=== PATIENT | female | born 1990 | race Caucasian/White ===

== ENCOUNTER → 2017-09-10 | Outpatient (CLI) | payer OTHER | LOC: FIMAGING 17:19 | PROVIDERS: ATTEND Advanced Practice Midwife | DX: O02.1 Missed abortion (principal) ==

== ENCOUNTER 2017-09-14 05:43 | Day surgery (SDC) | payer OTHER ==
--- NOTE | 2017-09-13 14:39 | GHP ---
[f rep st] HISTORY AND PHYSICAL HISTORY OF PRESENT ILLNESS: Patient is a 27-year-old 1, para 0, with an EDC of 02/17/2018, which gives her a gestational age of 17 weeks and 1 day on 09/10/2017. On 09/10/2017, patient came in for her routine check, and we were unable to get heart tones. Doppler was attempted. Ultrasound was attempted in the office at the bedside. Physician, Dr. Chidi Lyn, came and also reviewed the ultrasound. There was an inability to confirm lack of cardiac activity, although we all felt that this was the case. Patient denied leaking, denied bleeding. Had not felt movement up until this point. A formal ultrasound was requested through radiology and was completed. On this ultrasound, no heart tones were visualized. Fetus was vertex. Placenta location was posterior and fundal. No previa. Cervix was 3-4 cm. Maximum vertical pocket was 3.3. No heart tones were seen on M-mode. Abdominal circumference for 15 weeks. Femur length was 14 weeks. Average ultrasound age was 14 weeks and 4 days, and the impression was that there was a demise with no cardiac activity. Dr. Juan Pascual is who reviewed the ultrasound. 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 Patient had never previously had a Pap. History of asthma, had 2 mild attacks early on in the . Previous cystitis, history of a UTI x1. SURGICAL HISTORY: [place] teeth extraction at the age of 26. PRESENT HISTORY: A low P4. Patient was on progesterone 200 mg per vagina up until 13 weeks. GYNECOLOGICAL HISTORY: Menarche started at 15 years old. Interval is 28 days. Length is 4 days. LMP was May 06, 2017. ALLERGIES: Patient is not allergic to any medications. MEDICATIONS: Being taken are Diclegis, Prometrium, and vitamins with DHA. OTHER MEDICAL HISTORY: Patient is positive for alpha thalassemia. She is a carrier, and father of the baby was negative, per the Inn[employer] standard screening. LABS: Patient is O positive, antibody negative. RPR is nonreactive. Rubella is immune. Hepatitis is negative. HIV is negative. Pap was within normal limits. Gonorrhea and chlamydia were negative. PHYSICAL ASSESSMENT: GENERAL: Patient is awake, alert, oriented x3. LUNGS: Clear bilaterally. ABDOMEN: Bowel sounds are positive in all 4 quadrants. EXTREMITIES: DTRs are 1+ bilaterally. Homans sign is negative. VITAL SIGNS: Have been within normal limits. Blood pressure was 100/62 on 09/10 for her 17 week and 1 day visit. PLAN OF CARE: 1. Dilation and evacuation on 09/14/2017. 2. Patient is O positive, antibody negative. 3. Education to patient: Nothing by mouth from 10 p.m. tonight until after procedure. Verbalized understanding. Discussed risks, benefits, and alternatives with the patient as far as dilation and curettage, dilation and evacuation. Patient verbalized understanding. The physicians will again speak with her in the a.m. about risks, benefits, and alternatives. 4. Cytotec 400mcg by mouth at 1900 on 09/13/2017. Patient wanted ultrasound: Harley IUP with no cardiac activity confirmed Risk of bleeding, infection, transfusion injury to adjacent organs such as bladder and uterus. All questions answered consent signed Genetic studies. Significant other was also a part of this conversation on the telephone today for plan of care. /[id number]/MODL MTDD
[2017-09-14] MEDS ORDERED: LR 1,000 ML IV ONE (06:19)
[2017-09-14] MEDS ORDERED: DOXYCYCLINE HYCLATE 100 MG CAP/TAB PO ONE ×3 (06:19→10:15)
[2017-09-14] MEDS ORDERED: fentaNYL 100 MCG/2 ML INJ IVP PRN (07:20)
[2017-09-14] MEDS ORDERED: ONDANSETRON 4 MG/2 ML VIAL IVP PRN (07:20)
[2017-09-14] MEDS ORDERED: HYDROCODONE/APAP 5/325 TAB PO PRN (07:20)
[2017-09-14] MEDS ORDERED: OXYCODONE/APAP 5/325 TAB PO PRN (07:20)
[2017-09-14] MEDS ORDERED: ACETAMINOPHEN 500 MG TAB PO PRN (07:20)
[2017-09-14] MEDS ORDERED: NALOXONE HCL 0.4 MG/ML INJ IVP PRN (07:20)
[2017-09-14] MEDS ORDERED: ALBUTEROL 3 ML DEYVIAL IH PRN (07:20)
--- NOTE | 2017-09-14 07:20 | PDANEPAE ---
ANE History of Present Illness D&C ANE Past Medical History - Cardiovascular History Hx Hypertension: No Hx Arrhythmias: No Hx Chest Pain: No - Pulmonary History Hx Asthma/Reactive Airway Disease: Yes Hx Sleep Apnea: No Sleep Apnea Screening Result - Last Documented: Negative ANE Review of Systems Review of systems is: negative Review of Systems: - Exercise capacity Exercise capacity: >=4 METS ANE Patient History - Allergies Allergies/Adverse Reactions: aspirin Allergy (Verified 09/14/17 06:41) - NPO status NPO Since - Liquids (Date): 09/13/17 NPO Since - Liquids (Time): 22:00 NPO Since - Solids (Date): 09/13/17 NPO Since - Solids (Time): 20:00 - Smoking Hx Smoking Status: Never smoked ANE Labs/Vital Signs - Vital Signs Blood Pressure: 98/68 Heart Rate: 62 Respiratory Rate: 12 O2 Sat (%): 99 Height: 162.56 cm Weight: 65.771 kg ANE Physical Exam - Airway Neck exam: FROM Mallampati Score: Class 2 - Pulmonary Pulmonary: clear to auscultation - Cardiovascular Cardiovascular: regular rate and rhythym - ASA Status ASA Status: II ANE Anesthesia Plan Anesthesia Plan: GA w LMA
[2017-09-14] MEDS ORDERED: PROPOFOL 200 MG/20 ML VIAL ONE (07:24)
[2017-09-14] MEDS ORDERED: LIDOCAINE 2% 5 ML SDV ONE (07:24)
[2017-09-14] MEDS ORDERED: fentaNYL 100 MCG/2 ML INJ ONE ×2 (07:25→08:33)
[2017-09-14] MEDS ORDERED: RANITIDINE 50 MG/2 ML VIAL ONE (08:09)
[2017-09-14] MEDS ORDERED: MISOPROSTOL 200 MCG TAB ONE (08:35)
--- NOTE | 2017-09-14 09:33 | POSTANESTH ---
Post Anesthetic Evaluation Cardiovascular Status: Normal, Stable Respiratory Status: Normal, Stable Level of Consciousness/Mental Status: Can Participate in Eval, Alert and Oriented Pain Control: Adequate, Prn Tx Ordered Nausea/Vomiting Control: Adequate, Prn Tx Ordered Complications Possibly Related to Anesthesia: None Noted
[2017-09-14] MEDS ORDERED: MISOPROSTOL 200 MCG TAB PR SCH (09:45)
--- NOTE | 2017-09-14 09:58 | GOP ---
[f rep st] OPERATIVE REPORT DATE OF OPERATION: SURGEON: Margoth Houser MD TYPE DISK QUALITY CONTROL SUPERVISOR: Dr. Cande Gutierrez. ANESTHESIOLOGIST: Dr. Froylan Valdivia. PREOPERATIVE DIAGNOSIS: demise 15 weeks gestation POSTOPERATIVE DIAGNOSIS: Same PROCEDURE PERFORMED: Suction dilatation and curettage evacuation. FINDINGS: SPECIMENS: To Pathology, products of conception. ESTIMATED BLOOD LOSS: 50 cc. DESCRIPTION OF PROCEDURE: Patient was taken to the operating room, where adequate general anesthetic was placed. Patient was placed in the lithotomy position in Dashawn stirrups. Patient was prepped and draped in normal sterile fashion. A speculum was then placed in the vagina and the anterior lip of the cervix was grasped with the tenaculum. The uterus was sounded to approximately 14 cm. The cervix was then dilated to approximately 11 mm. An 11 mm suction curet was then used to evacuate products of conception under direct visualization by Dr. Gutierrez, and during the procedure material was then removed with both the suction vacuum curettage and the ring forceps. Patient tolerated procedure well. All instruments were removed from the vagina. Using a red rubber catheter, the 200 cc of urine was removed from the bladder, and approximately 50 cc of EBL was lost. The patient went to Recovery in stable condition, and all products went to Pathology. Patient received doxycycline prior to procedure and will receive a dose postoperatively. Patient also received 800 mcg cytotec per rectum Patient will go home on [place], and follow up in the office in 2 weeks. URINE OUTPUT: 200 cc. IV FLUID: 1600. /[id number]/MODL MTDD
[2017-09-14] MEDS ORDERED: MISOPROSTOL 200 MCG TAB VG SCH (10:30)
[2017-09-14 10:31] VITALS: O2SAT 98
[2017-09-14] MEDS ORDERED: HYDROCODONE/APAP 5/325 TAB PO ONE (10:45)
[2017-09-14 10:51] VITALS: RESP 16
[2017-09-14 11:25] VITALS: BP 93/67
[2017-09-14 11:29] VITALS: TEMP 97.7
[2017-09-14 11:32] VITALS: PULSE 88
== END 2017-09-14 11:20 | disposition home or self-care (01) ==
LOC: FOBOP 05:43
PROVIDERS: ATTEND Obstetrics & Gynecology
PROC: 10D17ZZ Extraction of Products of Conception, Retained, Via Natural or Artificial Opening (ICD-10-PCS; principal; 2017-09-14)
DX: O36.4XX0 Maternal care for intrauterine death, not applicable or unspecified (principal); Z3A.15 15 weeks gestation of pregnancy
CPT/HCPCS: J2704; J2780; J3010; J7613